=== PATIENT | male | born 2000 | race Caucasian/White ===

== ENCOUNTER 2019-06-19 11:45 | Emergency (ER) | payer OTHER ==
[~2019-06-19] VITALS: Ht 177.8 cm; Wt 86.2 kg
[~2019-06-19 11:45] MED LIST: NABUMETONE500 MG PO; PERCOCET 5/3251 TAB PO
== END 2019-06-19 20:33 | disposition home or self-care (01) ==
LOC: ER 11:45
DX: A49.3 Mycoplasma infection, unspecified site (principal); B34.8 Other viral infections of unspecified site; R05 Cough; R51 Headache; R07.0 Pain in throat

== ENCOUNTER 2019-09-08 14:51 | Emergency (ER) | payer OTHER ==
[~2019-09-08] VITALS: Ht 177.8 cm; Wt 83.9 kg
== END 2019-09-08 23:29 | disposition home or self-care (01) ==
LOC: ER 14:51
DX: R11.11 Vomiting without nausea (principal); E86.0 Dehydration; R10.84 Generalized abdominal pain

== ENCOUNTER 2020-04-07 08:35 | Outpatient (CLI) | payer OTHER | END 2020-04-07 08:42 | disposition home or self-care (01) | LOC: NUCLEAR 08:35 | PROVIDERS: ATTEND Psychiatry & Neurology Psychiatry | DX: F12.20 Cannabis dependence, uncomplicated (principal); F90.2 Attention-deficit hyperactivity disorder, combined type | CPT/HCPCS: 78814; A9552 ==